=== PATIENT | female | born 1980 | race African-American/Black ===

== ENCOUNTER 2024-03-07 17:35 | Emergency (ER) | payer MEDICAID ==
[~2024-03-07] VITALS: Ht 170.2 cm; Wt 101.6 kg
[2024-03-07 18:31] LABS: BASOPHILS % (AUTO) 0.3 % (0.0-2.0); EOSINOPHILS % (AUTO) 0.3 % (0.0-6.0); HEMATOCRIT 41 % (33-45); HEMOGLOBIN 13.2 g/dL (11.5-14.8); LYMPHOCYTES # (AUTO) 1.5 K/uL (0.8-4.8); LYMPHOCYTES % (AUTO) 12.5 % (20.0-44.0); MEAN CORPUSCULAR HEMOGLOBIN 25 PG (26.0-33.0); MEAN CORPUSCULAR HGB CONC 33 g/dl (31.0-36.0); MEAN CORPUSCULAR VOLUME 77 fL (82-100); MONOCYTES # (AUTO) 0.5 K/uL (0.1-1.30); MONOCYTES % (AUTO) 3.9 % (2.0-12.0); NEUTROPHILS # (AUTO) 10.1 K/uL (1.8-8.9); PLATELET COUNT (AUTO) 139 K/uL (150-450); RED BLOOD CELL COUNT(AUTO) 5.28 MIL/uL (4.0-5.2); WHITE BLOOD COUNT (AUTO) 12.2 K/uL (4.3-11.0)
[2024-03-07] MEDS ORDERED: ONDANSETRON HCL/PF 4 MG/2 ML VIAL ONE (18:31)
[2024-03-07] MEDS ORDERED: MORPHINE SULFATE INJ 4 MG/ML DISP.SYRIN ONE ×2 (18:33→20:30)
[2024-03-07 18:41] LABS: CALCIUM, SERUM 9.4 mg/dL (8.5-10.1); CARBON DIOXIDE 25 mmol/L (21-32); CHLORIDE 104 mmol/L (98-107); CREATININE 0.7 mg/dL (0.6-1.3); GLUCOSE 111 mg/dL (74-106); POTASSIUM 3.9 mmol/L (3.5-5.1); SODIUM SERUM 138 mmol/L (136-145); UREA NITROGEN, BLOOD 7 mg/dL (7-18)
[2024-03-07 18:46] LABS: ALANINE AMINOTRANSFERASE 44 U/L (12-78); ALBUMIN 4.2 g/dL (3.4-5.0); ALKALINE PHOSPHATASE 66 U/L (46-116); ASPARTATE AMINOTRANSFERASE 59 U/L (15-37); BILIRUBIN,DIRECT 0.3 mg/dL (0.0-0.2); BILIRUBIN,TOTAL 1.5 mg/dL (0.2-1.0)
[2024-03-07] MEDS: IV NS 0.9% 1,000 ML BAG IV ONE (19:01)
[2024-03-07] MEDS: ONDANSETRON HCL/PF 4 MG/2 ML VIAL IV ONE (19:06)
[2024-03-07] MEDS: MORPHINE SULFATE INJ 2 MG/ML DISP.SYRIN IV ONE ×2 (19:07→20:31)
[2024-03-07 20:32] LABS: PREGNANCY TEST URINE QUAL NEGATIVE (NEGATIVE)
[2024-03-07 20:32] LABS: BAND % (MANUAL) 5 % (0.0-5.0); LYMPHOCYTES % (MANUAL) 8 % (16-48); MONOCYTES % (MANUAL) 7 % (0-11.0); NEUTROPHILS % (MANUAL) 80 (42-76); PLATELET ESTIMATE DECREASED
[2024-03-07 20:33] LABS: ANISOCYTOSIS 1+; TARGET CELLS 2+
[2024-03-07] MEDS ORDERED: OXYC-128 PO (20:53)
[2024-03-07] MEDS ORDERED: IBUP-1490 PO (20:53)
[2024-03-07] MEDS ORDERED: CYCL5TAB PO (21:02)
[2024-03-07 21:23] VITALS: BP 132/78; TEMP 98.4; O2SAT 99
== END 2024-03-07 21:26 | disposition home or self-care (01) ==
LOC: ER 17:40
DX: G89.29 Other chronic pain (principal); M54.59 Other low back pain; M25.559 Pain in unspecified hip; D57.1 Sickle-cell disease without crisis; R06.02 Shortness of breath; R07.9 Chest pain, unspecified
CPT/HCPCS: 99285; 96374; 96375; 71045; 96361; 93005; 85025; 80048; 80076; 84703; 85045; 36415; 84484; 85007; J2270 ×2; J2405; J7030